=== PATIENT | female | born 1955 | race Caucasian/White ===

== ENCOUNTER 2016-11-07 14:18 | Emergency (ER) | payer MEDICAID, OTHER ==
[~2016-11-07] VITALS: Ht 170.2 cm; Wt 62.0 kg
[2016-11-07 15:11] VITALS: Ht 170.2 cm; Wt 62.0 kg
[2016-11-07] MEDS ORDERED: KETOROLAC 30 MG INJ IM STA (20:18)
[2016-11-07] MEDS ORDERED: ULT50 PO (20:23)
[2016-11-07 20:45] VITALS: BP 147/72; PULSE 80; RESP 18
--- NOTE | 2016-11-07 21:46 | ERD ---
ER Documentation Chief Complaint Date/Time DATE: 11/07/16 TIME: 21:44 Chief Complaint VAG BLEEDING HPI Patient is a 61-year-old female with hypertension who says "I need back pain medication". She was requesting Percocet or Lortab and says "sometimes I give me a shot of morphine". She also says that she had hip surgery which has healed. She has had 4 weeks of back pain. She denies vaginal bleeding. Upon review of old medical records this is the patient's third visit to the ER since 2014. Her primary doctor is at [facility]. ROS All systems reviewed and are negative except as per history of present illness. Medications Home Meds Active Scripts Tramadol HCl (Tramadol HCl) 50 Mg Tablet, 50 MG PO Q6 Y for PAIN, #20 TAB Prov:ROSE ASHRAF MD 11/07/16 Allergies Allergies: Coded Allergies: quetiapine (Verified Allergy, Unknown, 07/04/15) PMhx/Soc History of Surgery: Yes (hip replacement) Anesthesia Reaction: No Hx Respiratory Disorders: Yes (asthma) Hx Cardiac Disorders: Yes (htn) Hx Psychiatric Problems: Yes (bipolar) Hx Miscellaneous Medical Probl: Yes (chronic back pain) Hx Alcohol Use: No Hx Substance Use: Yes (occasional marijuana) Hx Tobacco Use: Yes Smoking Status: Current every day smoker FmHx Family History: diabetes Physical Exam Vitals Vital Signs Date Time Temp Pulse Resp B/P Pulse Ox O2 Delivery O2 Flow Rate FiO2 11/07/16 20:45 80 18 147/72 99 Room Air 11/07/16 15:11 98.0 93 18 148/64 99 Physical Exam Const: No acute distress Head: Atraumatic Eyes: Normal Conjunctiva ENT: Normal External Ears, Nose and Mouth. Neck: Full range of motion..~ No meningismus. Resp: Clear to auscultation bilaterally Cardio: Regular rate and rhythm, no murmurs Abd: Soft, non tender, non distended. Normal bowel sounds Skin: No petechiae or rashes Back: Lower back pain bilaterally without midline tenderness, no step-off noted Ext: No cyanosis, or edema Neur: Awake and alert Psych: Normal Mood and Affect Results 24 hrs Current Medications Medications (Trade) Dose Ordered Sig/Sloane Route PRN Reason Start Time Stop Time Status Last Admin Dose Admin Ketorolac Tromethamine (Toradol) 30 mg ONCE STAT IM 11/07/16 20:18 11/07/16 20:19 DC 11/07/16 20:26 Procedures/MDM Smoking Cessation Therapy: Pt. was lectured for greater than 3 minutes on the health risks of continued smoking and the benefits of cessation. Patient is a 61-year-old female with back pain who presents with back pain. I would not give her narcotic medicines at this time. I will give her a shot of Toradol in the emergency department and I will discharge her with a prescription for tramadol. She can follow-up closely with her primary doctor within 24-48 hours and to return if symptoms worsen. At this point I doubt epidural abscess, epidural hematoma, or cauda equina syndrome. Departure Diagnosis: Primary Impression: Back pain Back pain location: low back pain Chronicity: acute Back pain laterality: bilateral Sciatica presence: without sciatica Qualified Code: M54.5 - Acute bilateral low back pain without sciatica Condition: Fair Patient Instructions: Back Pain (Acute Or Chronic) Referrals: Your doctor at [facility] Additional Instructions: Call your primary care doctor TOMORROW for an appointment during the next 1-2 days.See the doctor sooner or return here if your condition worsens before your appointment time. ROSE ASHRAF MD Nov 07, 2016 21:46
== END 2016-11-07 20:45 | disposition home or self-care (01) ==
LOC: E/R 14:18
DX: M54.5 Low back pain (principal); I10 Essential (primary) hypertension; J45.909 Unspecified asthma, uncomplicated; F17.210 Nicotine dependence, cigarettes, uncomplicated; Z96.649 Presence of unspecified artificial hip joint
CPT/HCPCS: 96372; J1885; Z7502